=== PATIENT | male | born 1955 | race Caucasian/White ===

== ENCOUNTER 2019-07-30 19:51 | Inpatient (IN) | payer OTHER ==
[~2019-07-30] VITALS: Ht 177.8 cm; Wt 109.6 kg
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
[2019-07-30 19:52] VITALS: BP 121/73
[2019-07-30 20:15] LABS: HCO3 22.6 mmol/L (22.0-26.0); PCO2 29.1 mmHg (35.0-45.0); PO2 98.8 mmHg (80.0-100.0); pH 7.508 (7.360-7.450); sO2 98.1 % (92.0-98.0)
[2019-07-30 20:20] LABS: ABSOLUTE NEUTROPHILS 4.6 thou/uL (1.4-8.2); BASOPHILS 1.1 % (0.0-2.0); EOSINOPHILS 1.4 % (0.0-3.0); HEMATOCRIT 49.8 % (42.0-52.0); HEMOGLOBIN 16.6 gm/dL (14.0-18.0); MCH 29.5 pg (26.0-34.0); MCHC 33.4 g/dL (28.0-37.0); MCV 88.3 fL (80.0-100.0); MONOCYTES 7.1 % (1.0-8.0); PLATELET COUNT 199 thou/uL (150-400); POLYS 56.4 % (36.0-66.0); RBC 5.64 mil/uL (4.50-6.00); RDW 15.1 % (10.5-14.5); WBC 8.1 thou/uL (4.0-11.0)
[2019-07-30 20:29] LABS: ANION GAP 16 mmol/L (7-16); BUN 11 mg/dL (7-18); CALCIUM 8.2 mg/dL (8.5-10.1); CHLORIDE 104 mmol/L (98-107); CO2 23 mmol/L (21-32); GLUCOSE 90 mg/dL (74-106); POTASSIUM 3.9 mmol/L (3.5-5.1); SODIUM 143 mmol/L (136-145)
[2019-07-30 20:38] LABS: TROPONIN-I <0.06 ng/mL (<0.06)
--- NOTE | 2019-07-30 22:07 | NUR ---
PATIENT'S MOTHER NOTIFIED PER PATIENT REQUEST OF ADMISSION TO ER. SHE STATES SHE IS UNABLE TO COME TO ER SEC TO ILLNESS
[2019-07-30 23:24] VITALS: BP 133/73
[2019-07-30 23:44] VITALS: BP 125/80
[2019-07-31 00:07] LABS: TROPONIN-I <0.06 ng/mL (<0.06)
[2019-07-31 00:31] VITALS: BP 132/81
[2019-07-31] MEDS ORDERED: CLONAZEPAM 1 MG1 M1 PO (00:37)
[2019-07-31] MEDS ORDERED: ACCUNEB SO1.25 MG/1 INH (00:41)
[2019-07-31 04:30] VITALS: BP 126/75
--- NOTE | 2019-07-31 06:16 | NUR ---
PT ADMITTED OVER NIGHT TO ROOM 201. A&O X4 ABLE TO MAKE NEEDS KNOWN. DENIES HAVING ANY PAIN. COOPERATIVE WITH CARE. C/O ANXIETY ORDER OBTAINDED FROM [facility]. PT HAD INCREASED ANXIETY REFUSED BIPAP WHEN HE CAME TO THE FLOOR. PT ON 2L PER NC. PT STATED HE HAD 3 GLASSES OF VODKA WITH LEMONADE. PT STATED THE LAST HE DRANK PRIOR TO YESTERDAY WAS OVER A MONTH AGO. FALL PRECAUTIONS IN PLACE. SBA.
--- NOTE | 2019-07-31 06:20 | NUR ---
PT ERQUESTED BIPAN ON AND OFF OVERNIGHT ANXIETY. RT NOTIFIED APPROPRIATELY AND ASSISTED PT TO WEAR BIPAP. PT WENT FROM BIPAP TO NC A FEW TIMES. PT HAD EPISODE OF N/V THIS MORNING ABOUT 0600HRS. ORDER OBTAINED FOR ZOFRAN. PER PHOTOGRAPHY PROFESSOR NO ORDER FOR CIWA AT THIS TIME.
--- NOTE | 2019-07-31 06:53 | NUR ---
PT STATED HE WANTS TO LEAVE AMA. SPORTS ADMINISTRATOR NOTIFIED
--- NOTE | 2019-07-31 07:35 | NUR ---
PT WAS EXTENSIVELY EDUCATED ON LEAVING AGAINST MEDICAL ADVICE. PT EDUCATED IN [place]ENCE ON OF ONCOMING NURSE AND ORIENTEE. PT INITIALLY STATED HIS DECISION WAS TO LEAVE SO HE CAN GO TO WORK AT 0900HRS. PT HAS NO RIDE STATED HE WILL USE A CAB.
--- NOTE | 2019-07-31 07:38 | NUR ---
PT GIVEN PAPERWORK BY THIS NURSE TO SIGN TO LEAVE AMA. PT STATED HE WAS NOT FULLY DECIDED, STATED HE WAS THINKING TO HE SHOULD GET HIS ANTIBIOTICS FIRST FOR PNA BEFORE LEAVING. REPORT HANDED OVER TO ONCOMING NURSE. PT STILL UNDECIDED IF HE SHOULD LEAVE AMA AT THIS TIME.
--- NOTE | 2019-07-31 08:12 | EKG ---
[address] [address] ELECTROCARDIOGRAM REPORT Name: REBECCALUIS Room #: 201-P ADM IN M.R.#: [id number] ������������������ Admission: 07/30/19 ������������������ Attend Phys: Tez Shipman MD Discharge: ������������������ Date of : 55 Report #: [id number] ����������������������������������������������������������������� [id number] THIS REPORT FOR: //name// [facility] ED Test Date: 2019-07-30 Test Time: 21:44:11 Pat Name: LUIS FERNANDEZ Department: Room: 201 P Gender: M Presiding Judge: GERTRUDE : 1955 Requested By: Jose Rafael Allen Order Number: [id number] MD: Byron Tijerina Measurements Intervals [place] Rate: 103 P: 84 VT: 141 QRS: 86 QRSD: 103 T: 61 QT: 355 QTc: 465 Interpretive Statements Sinus tachycardia Borderline right axis deviation No previous ECG available for comparison Electronically Signed On 07-31-2019 8:12:30 CDT by Byron Tijerina [email or web address] ��������������������������������������������� <ELECTRONICALLY SIGNED> ���������������������������������������� By: Byron Tijerina MD ��������������������������������������������� 07/31/19 0812 2144 2144 Byron Tijerina MD /LUIGI
--- NOTE | 2019-07-31 08:12 | EKG ---
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: [place] : 1955 Requested By: Jose Rafael Allen Order Number: [id number] MD: Byron Tijerina Measurements Intervals [place] Rate: 107 P: 80 AR: 143 QRS: 92 QRSD: 100 T: 51 QT: 335 QTc: 447 Interpretive Statements Sinus tachycardia Right axis deviation No previous ECG available for comparison Electronically Signed On 07-31-2019 8:12:09 CDT by Byron Tijerina [email or web address] ��������������������������������������������� <ELECTRONICALLY SIGNED> ���������������������������������������� By: Byron Tijerina MD ��������������������������������������������� 07/31/1912 22 22 Byron Tijerina MD /LUIGI
[2019-07-31 08:35] VITALS: BP 157/79
--- NOTE | 2019-07-31 10:14 | NUR ---
PATIENT UNDERSTANDS PURPOSE OF ACUTE OT SERVICES AND DECLINES NEED AT THIS TIME. SYSTEMS ANALYST DEVELOPER, PATIENT INDEPENDENT WITH ADLS AND IADLS. PATIENT CONTEMPLATING LEAVING AMA, DOCTOR AND RN PRESENT DURING DISCUSSION.
--- NOTE | 2019-07-31 10:20 | 2DMMODE ---
[facility] [address] [place] [address] 2 D/M-MODE ECHOCARDIOGRAM Name: LUIS FERNANDEZ Room #: 201-P ADM IN M.R.#: [id number] ������������� Admission: 07/30/19 ������������� Attend Phys: Tez Shipman MD Discharge: ��� ������������� ��� Date of : 55 �������������������� �� Report #: [id number] �������� ��������������������������������������������[id number] THIS REPORT FOR: //name// APPROVED REPORT Study performed: 07/31/2019 09:46:28 EXAM: Comprehensive 2D, Doppler, and color-flow Echocardiogram Patient Location: Echo lab Room #: 201 Status: routine BSA: 2.29 HR: 95 bpm BP: 157/79 mmHg Rhythm: NSR Other Information Study Quality: Adequate Indications COPD Dyspnea 2D Dimensions RVDd: 41.45 mm IVSd: 8.81 (7-11mm) LVOT Diam: 23.19 (18-24mm) LVDd: 57.02 mm PWd: 9.78 (7-11mm) Ascending Ao: 26.00 (22-36mm) LVDs: 39.36 (25-40mm) Aortic Root: 35.83 mm IVC: 17.00 mm Volumes Left Atrial Volume (Systole) Single Plane 4CH: 63.53 mL Single Plane 2CH: 44.87 mL LA ESV Index: 26.00 mL/m2 Aortic Valve AoV Peak Yosi.: 1.56 m/s AO Peak Gr.: 9.74 mmHg LVOT Max P.84 mmHg LVOT Max V: 1.21 m/s KHADRA Vmax: 3.27 cm2 Mitral Valve E/A Ratio: 1.2 MV Decel. Time: 189.31 ms [facility] [address] [place] [address] 2 D/M-MODE ECHOCARDIOGRAM Name: REBECCALUIS Room #: 201-P ADM IN Chava.#: [id number] ������������� Admission: 07/30/19 ������������� Attend Phys: Tez Shipman MD Discharge: ��� ������������� ��� Date of : 55 �������������������� �� Report #: [id number] �������� ��������������������������������������������[id number] MV E Max Yosi.: 1.06 m/s MV A Yosi.: 0.88 m/s MV PHT: 54.90 ms IVRT: 101.50 ms Pulmonary Valve PV Peak Yosi.: 1.28 m/s PV Peak Gr.: 6.58 mmHg Pulmonary Vein P Vein S: 0.72 m/s P Vein A: 0.25 m/s P Vein D: 0.50 m/s P Vein A Dur.: 101.5 msec P Vein S/D Ratio: 1.44 Left Ventricle Left ventricle is at the upper limits of normal. There is normal LV segmental wall motion. There is normal left ventricular wall thickness. Left ventricular systolic function is normal. The left ventricular ejection fraction is within the normal range. LVEF is 55-60%. Right Ventricle The right ventricle is normal size. The right ventricular systolic function is normal. Atria The left atrium size is normal. The right atrium size is normal. Aortic Valve The aortic valve is normal in structure. No aortic regurgitation is present. There is no aortic valvular stenosis. Mitral Valve The mitral valve is normal in structure. There is no mitral valve regurgitation noted. No evidence of mitral valve stenosis. Tricuspid Valve The tricuspid valve is normal in structure. There is no tricuspid valve regurgitation noted. Pulmonic Valve The pulmonary valve is normal in structure. There is no pulmonic valvular regurgitation. Great Vessels The aortic root is normal in size. IVC is normal in size and [facility] [address] [place] [address] 2 D/M-MODE ECHOCARDIOGRAM Name: LUIS FERNANDEZ Room #: 201-P ADM IN M.R.#: [id number] ������������� Admission: 07/30/19 ������������� Attend Phys: Tez Shipman MD Discharge: ��� ������������� ��� Date of : 55 �������������������� �� Report #: [id number] �������� ��������������������������������������������[id number] collapses >50% with inspiration. Pericardium There is no pericardial effusion. <Conclusion> Left ventricle is at the upper limits of normal. There is normal left ventricular wall thickness. Left ventricular systolic function is normal. The right ventricle is normal size. The left atrium size is normal. The right atrium size is normal. The aortic valve is normal in structure. There is no mitral valve regurgitation noted. There is no tricuspid valve regurgitation noted. ��������������������������������������������� <ELECTRONICALLY SIGNED> ���������������������������������������� By: Alphonse Hidalgo MD ��������������������������������������������� 07/31/19 1020 1020 19 Alphonse Hidalgo MD /NORMAN
[2019-07-31 11:28] VITALS: BP 166/86
--- NOTE | 2019-07-31 14:12 | NUR ---
met with patient he reports he is not staying in hospital he is leaving AMA. Patients arsalan came to pick him up and transport home. patient cont to state he is worried regarding his dogs. He states he has noone to assist with feeding his dogs. Discussed neighbors, family etc and patient negated everyone. he reports he sp with his mom for transport. Patients address [address] [address]
--- NOTE | 2019-07-31 14:44 | NUR ---
ASSESSMENT CHARTED. PT ALERT AND ORIENTED. DENIED HAVING PAIN OR DISCOMFORT. VSS. VERY ANXIOUS THIS SHIFT. SEEN BY DR. FORD. NEW ORDERS NOTED. PT LEFT AGAINST MEDICAL ADVISE. DR. FORD, AND PULVI MIXER OPERATOR NOTIFIED.
== END 2019-07-31 14:14 | disposition left against medical advice (07) | DRG 193 ==
LOC: ER 19:51 → 2N 23:16 → EROBS 23:16 → 2N 23:46
PROVIDERS: Emergency Medicine; Nurse Practitioner; ADMIT Internal Medicine
PROC: 5A09357 Assistance with Respiratory Ventilation, Less than 24 Consecutive Hours, Continuous Positive Airway Pressure (ICD-10-PCS; principal; 2019-07-31)
DX: J18.1 Lobar pneumonia, unspecified organism (principal); J96.21 Acute and chronic respiratory failure with hypoxia; E87.2 Acidosis; J44.0 Chronic obstructive pulmonary disease with (acute) lower respiratory infection; J44.1 Chronic obstructive pulmonary disease with (acute) exacerbation; F17.210 Nicotine dependence, cigarettes, uncomplicated; J45.909 Unspecified asthma, uncomplicated; Z53.21 Procedure and treatment not carried out due to patient leaving prior to being seen by health care provider; F10.129 Alcohol abuse with intoxication, unspecified; Z79.51 Long term (current) use of inhaled steroids; Z79.899 Other long term (current) drug therapy; Z71.6 Tobacco abuse counseling; Z87.828 Personal history of other (healed) physical injury and trauma
CPT/HCPCS: 10081

== ENCOUNTER 2021-06-03 11:01 | Emergency (ER) | payer OTHER ==
[~2021-06-03] VITALS: Ht 177.8 cm; Wt 113.4 kg
[~2021-06-03 11:01] MED LIST: ACCUNEB SO1.25 MG/1 INH; CLONAZEPAM 1 MG1 M1 PO
[2021-06-03] MEDS ORDERED: KLONOPIN1 MG PO (12:11)
[2021-06-03 12:36] VITALS: BP 129/88
== END 2021-06-03 12:38 | disposition home or self-care (01) ==
LOC: ER 11:01
DX: F41.9 Anxiety disorder, unspecified (principal); J45.909 Unspecified asthma, uncomplicated; J44.9 Chronic obstructive pulmonary disease, unspecified; F17.210 Nicotine dependence, cigarettes, uncomplicated; Z76.0 Encounter for issue of repeat prescription; Z65.8 Other specified problems related to psychosocial circumstances